=== PATIENT | female | born 1945 | race Caucasian/White ===

== ENCOUNTER 2017-04-12 03:59 | Inpatient (IN) | payer MEDICARE ==
[~2017-04-12] VITALS: Ht 157.5 cm; Wt 64.9 kg
[2017-04-12] VITALS (7 sets, daily range): BP systolic 94–135; BP diastolic 54–84
[2017-04-12] MEDS ORDERED: SPIR50TA2 PO (04:10)
[2017-04-12] MEDS ORDERED: LEVO88TA3 PO (04:10)
[2017-04-12] MEDS: MORPHINE 4 MG/ML 1ML SYRINGE IV PRN ×2 (04:45→05:54)
[2017-04-12] MEDS ORDERED: ONDANSETRON 4MG/2ML VIAL (J2405) IV ONE (04:45)
[2017-04-12] MEDS: NS 1,000 ML IV SCH ×2 (05:56→12:13)
[2017-04-12 06:43] LABS: INR 0.94
[2017-04-12 06:53] LABS: ANION GAP 9 MEQ/L (8-16); BLOOD UREA NITROGEN 9 MG/DL (7-18); CALCIUM LEVEL 9.5 MG/DL (8.8-10.2); CARBON DIOXIDE LEVEL 26 MEQ/L (21-32); CHLORIDE LEVEL 104 MEQ/L (98-107); CREATININE FOR GFR 0.71 MG/DL (0.55-1.02); GLOMERULAR FILTRATION RATE > 60.0 (>39); GLUCOSE, FASTING 83 MG/DL (83-110); POTASSIUM SERUM 3.9 MEQ/L (3.5-5.1); SODIUM LEVEL 139 MEQ/L (136-145)
[2017-04-12 06:56] LABS: BASO % 0.4 % (0.0-1.0); EOS # 0.2 K/mm3 (0.0-0.50); EOS % 1.5 % (0.0-3.0); LARGE UNSTAINED CELL # 0.1 K/mm3 (0.0-0.4); LARGE UNSTAINED CELL % 0.9 % (0.0-4.0); LYMPH # 1.2 K/mm3 (1.5-4.5); LYMPH % 9.8 % (24.0-44.0); MEAN CORPUSCULAR HEMOGLOBIN 31.6 pg (27.0-33.0); MEAN CORPUSCULAR VOLUME 95.8 fl (80.0-96.0); MONO # 0.7 K/mm3 (0.0-0.8); NEUTROPHILS # 9.4 K/mm3 (1.8-7.7); NEUTROPHILS % 81.4 % (36.0-66.0); PLATELET COUNT, AUTOMATED 320 k/mm3 (150-450); RED CELL DISTRIBUTION WIDTH 13.7 % (11.5-14.5); WHITE BLOOD COUNT 11.5 K/mm3 (4.0-10.0)
[2017-04-12] MEDS ORDERED: PERCOCET 5MG/325MG TAB PO PRN ×3 (07:45→18:45)
[2017-04-12] MEDS ORDERED: ACETAMINOPHEN TAB 650MG DOSE (2X325MG) PO PRN (07:45)
[2017-04-12 07:55] LABS: T UPTAKE 36 % (30-39); THYROXINE (T4) 8.7 UG/DL (4.5-12.0)
[2017-04-12] MEDS ORDERED: MORPHINE 4 MG/ML 1ML SYRINGE As Ordered ONE (08:08)
--- NOTE | 2017-04-12 08:26 | ECGEPIP ---
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
--- NOTE | 2017-04-12 08:28 | HPE ---
DATE OF ADMISSION: 04/12/2017 PRIMARY CARE PROVIDER: Dr. Monaco in [place], primary residency in [place], [place]. HISTORY OF PRESENT ILLNESS: The patient is a 72-year-old female with past medical history significant for hypothyroidism presented to [facility] on 04/12/2017 for significant left ankle pain. Yesterday when patient tried to step down the stair case while she was carrying her belongings, she tripped and lost her balance and result in left ankle twisting. She denies any loss of consciousness. Patient did not hit the back, the head, the neck, the shoulder or elbow. After the event, patient could not get up from the floor. She sat down on the sofa for several hours. The pain did not go away. Therefore patient called 911 and brought to [facility] emergency room. Patient was found to have a left ankle fracture. Throughout the whole event, patient denies any neurological changes. Denies any chest pain or shortness of breath. Denies any history of heart disease or lung disease. ALLERGIES: No known drug allergies. PAST MEDICAL HISTORY: Hypothyroidism. History of spine fracture treated with conservative medical management. PAST SURGICAL HISTORY: None. HOME MEDICATIONS: - Synthroid 88 mcg by mouth daily - spironolactone 15 mg by mouth daily SOCIAL HISTORY: Patient used to smoke three packs per week. She quit approximately 20 years ago, however since then, patient used to smoke intermittently during social events. Patient drinks one wine a few times a week. Denies any recreational drug use. Patient is a FULL CODE. REVIEW OF SYSTEMS: General: No fever, no chills. HEENT: Denies any vision changes or auditory hallucinations. Cardiovascular: Denied any chest pain. Denied any history of cardiovascular disease. Respiratory: No shortness of breath. No cough. No sputum production. Denies any lung disease or lung condition. GI: No nausea, no vomiting, no abdominal pain, no diarrhea. Musculoskeletal: Patient had left ankle pain, found to have a left ankle fracture. Denies any other muscle pain or joint pain. Denies any trauma to the hip, lower back, bilateral shoulders, elbows, neck or the head. Neurological: Denies any numbness or tingling. PHYSICAL EXAMINATION: Vital signs: Temperature 98.3, pulse is 75, respirations 18, blood pressure is 158/72, pulse ox 100% on room air. General: No sign of acute distress. Alert and oriented times three. HEENT: Normocephalic, atraumatic. Extraocular motor grossly intact. Cardiovascular: Positive S1, S2. Regular rate. Lungs: Clear to auscultation bilaterally. Abdomen: Soft, nontender, nondistended. Bowel sounds present. No rebound. No guarding. Musculoskeletal: There are some bruises left medial ankle. No lower extremity edema. No cyanosis. Neurological: Sensation to light touch grossly intact. Muscle strength 5/5 throughout except I could not assess the left lower extremity due to significant pain. LABORATORY DATA: WBC 11.5, hemoglobin 13.9, hematocrit 42.1, platelet count 320. Sodium 139, potassium 3.9, chloride 104, carbon dioxide 26, BUN 9, creatinine 0.71, glomerular filtration rate greater than 60, fasting glucose 83, calcium 9.5. PT 12.7, INR 0.94. IMAGING STUDY: Official report pending. I look at the ankle x-ray and showed there is tibial fractures of the left lower extremity. EKG shows sinus rhythm. ASSESSMENT AND PLAN: 1. Left ankle fracture. Patient was admitted to medical/surgical floor under inpatient status. Orthopedic team is consulted, is planning to have surgery today. Patient will be placed n.p.o. Patient is placed on IV fluid. Will give patient oral pain medication for now. Patient does not have any cardiovascular disease or pulmonary disease in the past and at baseline, patient has met greater than 4. Patient never had surgery in the past. Patient is a low risk patient. The surgery is low risk. The benefit outweigh the risk for the patient and patient is currently optimized for the procedure. 2. Hypothyroidism. Patient is on Synthroid supplement. Follow with thyroid profile. 3. Use of spironolactone. Patient denies any history of hypertension. Patient was told she was given spironolactone for her hair loss. 4. Deep venous thrombosis (DVT) prophylaxis. Patient will be on thromboembolic deterrent stockings (TEDS) and sequential compression device.
[2017-04-12] MEDS ORDERED: MORPHINE 4 MG/ML 1ML SYRINGE IV STA (08:29)
--- NOTE | 2017-04-12 08:39 | REP ---
Chest one-view HISTORY: Preop Comparison: None The lungs are clear. The heart is normal in size. The pulmonary vasculature is normal in appearance. Impression: No acute disease. Signed by Alexx Herrera MD 04/12/2017 08:30 A
--- NOTE | 2017-04-12 08:42 | REP ---
Left foot series: Two views. History: Trauma. Findings: AP and lateral views of the left foot demonstrate post-traumatic deformity of the distal fibula and medial malleolus consistent with ankle fracture. 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 Mild diffuse osteopenia. There is Achilles calcaneal spurring. No acute foot fracture seen. Signed by Clay Licea MD 04/12/2017 10:18 A
--- NOTE | 2017-04-12 08:43 | REP ---
Left TIB-fib series: Five views. History: Trauma. Findings: Five views of the left tibia and fibula demonstrate a obliquely oriented fracture of the distal fibula displaced laterally. There is a transverse fracture of the medial malleolus and there is lateral subluxation of the ankle. A posterior tibial fracture is seen at the ankle as well. There is associated soft-tissue swelling. No proximal tibial or fibular fracture is seen. Impression: Displaced trimalleolar fracture subluxation at the ankle. No proximal fracture seen. Signed by Clay Licea MD 04/12/2017 10:18 A
--- NOTE | 2017-04-12 08:44 | REP ---
LEFT ANKLE, FOUR VIEWS: HISTORY: Fracture. There are fractures of the medial and lateral malleoli. There is a possible fracture of the posterior malleolus. There is widening of the ankle joint space. There is no dislocation. Soft tissue swelling is present. IMPRESSION: Fractures of the medial and lateral malleoli. Signed by Alexx Herrera MD 04/12/2017 08:50 A
[2017-04-12] MEDS ORDERED: ceFAZolin 1GM INJ (J0690) As Ordered ONE ×2 (13:12→15:23)
[2017-04-12] MEDS ORDERED: BUPIVACAINE/EPIN 0.25% 30 ML VIAL As Ordered ONE (13:12)
[2017-04-12] MEDS ORDERED: ceFAZolin 2 GM/D5W 50 ML IV BAG (J0690) As Ordered ONE (15:18)
[2017-04-12] MEDS ORDERED: PERCOCET 5MG/325MG TAB As Ordered ONE (15:57)
[2017-04-12] MEDS ORDERED: PREGABALIN 50 MG CAP (LYRICA) PO ONE (16:15)
[2017-04-12] MEDS ORDERED: PERCOCET 5MG/325MG TAB PO ONE (16:15)
[2017-04-12] MEDS ORDERED: MIDAZOLAM INJ 2 MG/2 ML VIAL (J2250) As Ordered ONE (16:34)
[2017-04-12] MEDS ORDERED: fentaNYL 100 MCG/2 ML INJECTION (J3010) As Ordered ONE (16:34)
[2017-04-12] MEDS ORDERED: PROPOFOL 500 MG/50 ML VIAL As Ordered ONE (16:34)
[2017-04-12] MEDS ORDERED: ONDANSETRON 4MG/2ML VIAL (J2405) As Ordered ONE (16:35)
[2017-04-12] MEDS ORDERED: dexameTHASONE 4 MG/ML 1ML VIAL (J1100) As Ordered ONE (16:35)
[2017-04-12] MEDS ORDERED: LIDOCAINE 2% INJ 100 MG/5 ML SDV (FOR ANES.) As Ordered ONE (16:36)
--- NOTE | 2017-04-12 16:43 | CR ---
DATE OF CONSULTATION: 04/12/2017 CHIEF COMPLAINT: Left ankle pain and deformity. 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 She ended up crawling to the bathroom, struggling to get onto the commode, and rested for a bit, and she realized eventually that she needs to call EMS because there was a problem with the ankle. She was brought to [facility] for further evaluation, where imaging studies reflect a bimalleolar fracture dislocation, with subtle involvement of the posterior malleolus, technically a trimalleolar fracture. Orthopedics was consulted. The patient's pain control with morphine in the emergency room. ALLERGIES: No known allergies. SMOKING HISTORY: Does not smoke. MEDICAL HISTORY: Includes hypothyroidism. MEDICATIONS AT HOME: Include Synthroid and spironolactone. SOCIAL HISTORY She used to smoke, but does not smoke. Occasionally drinks but not excessively. She is single. REVIEW OF SYSTEMS: General: Not complaining of fever or chills, not complaining of headache, not complaining of chest pain, not complaining of shortness of breath, not complaining of stomach problems. Complains of her left ankle pain, swelling and deformity. She does not complain of numbness or tingling either. Not complaining of endocrine trouble. IMAGING STUDIES: Show the fracture as mentioned above. CLINICAL EXAMINATION: Alert for and cooperative. Mood and affect are appropriate. The patient is pleasant. She has healthy skin in face, upper and lower extremities. There is no effusion or tenderness about the knee, and there is no pain with hip rotation. The foot is warm and well perfused with a palpable dorsalis pedis pulse. The foot is mildly edematous at this stage, but there are no open wounds on the left. Uninvolved on the right. LABORATORY FINDINGS Include a hemoglobin of 14, potassium 3.9. Creatinine 0.71. IMPRESSION: Left ankle fracture dislocation technically a trimalleolar type. RECOMMENDATIONS: Medical optimization via hospitalist service. Splinting in the emergency room by Mr. Goins, our physician insurance legal assistant. We talked to the patient about nonoperative intervention and reviewed a consent document with the patient, which involved a mehrdad discussion of the pathology involved, procedure proposed, alternatives including doing nothing and risks including but not limited to pain, failure, infection, bleeding blood loss, incomplete relief of symptoms, need for more surgery or other problems. The patient agreed to proceed.
[2017-04-12] MEDS ORDERED: PHENYLephrine HCL 500 MCG/5 ML (100MCG/ML) SYRINGE (J2370) As Ordered ONE ×2 (16:57→16:58)
[2017-04-12] MEDS ORDERED: ePHEDrine SULFATE 25 MG/5 ML(5MG/ML) SYRINGE As Ordered ONE ×2 (16:57→16:58)
[2017-04-12] MEDS ORDERED: D5W/LR 1,000 ML IV SCH (18:30)
[2017-04-12] MEDS ORDERED: fentaNYL 100 MCG/2 ML INJECTION (J3010) IV PRN (18:45)
[2017-04-12] MEDS ORDERED: MEPERIDINE INJ 25 MG/ML VIAL (J2175) IV PRN (18:45)
[2017-04-12] MEDS ORDERED: METOCLOPRAMIDE INJ 10MG/2ML VIAL (J2765) IV PRN (18:45)
[2017-04-12] MEDS ORDERED: LR 1,000 ML IV SCH (18:45)
[2017-04-12] MEDS ORDERED: ONDANSETRON 4MG/2ML VIAL (J2405) IV PRN ×2 (18:45)
[2017-04-12] MEDS ORDERED: MORPHINE 4 MG/ML 1ML SYRINGE IV PRN (18:45)
--- NOTE | 2017-04-12 19:34 | REP ---
C-ARM VIEWS LEFT ANKLE: Three C-Arm views of the left ankle performed. Metallic plate and multiple metallic screws are seen in the distal fibula. There are two metallic screws in the medial malleolus. Structures appear well aligned. The ankle mortise is anatomic. 25 seconds of fluoroscopy time was utilized. Signed by Enzo Middleton MD 04/12/2017 08:07 P
[2017-04-13 02:00] VITALS: BP 95/50
[2017-04-13] MEDS: PERCOCET 5MG/325MG TAB PO PRN ×3 (04:26→22:46)
[2017-04-13 06:00] VITALS: BP 105/59
[2017-04-13 07:07] LABS: MEAN CORPUSCULAR HEMOGLOBIN 32.4 pg (27.0-33.0); MEAN CORPUSCULAR HGB CONC 33.6 g/dl (32.0-36.5); MEAN CORPUSCULAR VOLUME 96.5 fl (80.0-96.0); RED CELL DISTRIBUTION WIDTH 13.6 % (11.5-14.5); WHITE BLOOD COUNT 12.2 K/mm3 (4.0-10.0)
[2017-04-13 07:18] LABS: ANION GAP 7 MEQ/L (8-16); BLOOD UREA NITROGEN 9 MG/DL (7-18); CARBON DIOXIDE LEVEL 26 MEQ/L (21-32); CHLORIDE LEVEL 105 MEQ/L (98-107); CREATININE FOR GFR 0.59 MG/DL (0.55-1.02); GLOMERULAR FILTRATION RATE > 60.0 (>39); GLUCOSE, FASTING 129 MG/DL (83-110); SODIUM LEVEL 138 MEQ/L (136-145)
[2017-04-13 07:37] LABS: CALCIUM LEVEL 8.3 MG/DL (8.8-10.2)
[2017-04-13] MEDS: ASPIRIN ENTERIC 325 MG TAB PO SCH (09:04)
[2017-04-13 10:00] VITALS: BP 106/57
[2017-04-13 14:00] VITALS: BP 98/53
--- NOTE | 2017-04-13 17:06 | IPN ---
DATE: 04/13/2017 SUBJECTIVE: The patient is seen and examined in the room today. The patient stated her pain shows significant improvement with the pain medications. She has a cast on her left distal lower extremity. The patient is trying walking with physical therapy; however, the patient is complaining about the cast too heavy causing some difficulties. Otherwise no acute events reported. The patient is tolerating oral diet well. OBJECTIVE: VITAL SIGNS: Temperature is 98.1, pulse 69, respirations 11, blood pressure 105/59, pulse oximetry 96% on room air. GENERAL: No sign of acute distress. Alert and oriented times three. HEENT: Normocephalic, atraumatic. Extraocular motor grossly intact. CARDIOVASCULAR: Positive S1, S2. Regular rate. LUNGS: Clear to auscultation bilaterally. ABDOMEN: Soft, nontender, nondistended. Bowel sounds present. No rebound, no guarding. EXTREMITIES: Left distal lower extremity is wrapped with a cast. No sign of cyanosis. LABORATORY DATA: WBC 12.2, hemoglobin 11, hematocrit 32.6, platelet count 225. Sodium is 138, potassium 4, chloride 105, carbon dioxide 26, BUN 9, creatinine 0.59, GFR greater than 60, fasting glucose 129, calcium 8.3. ASSESSMENT AND PLAN: 1. Left ankle fracture. The patient had a surgical intervention by the orthopedic surgeon, Dr. Garcia on 04/12/2017. Today is postoperative day one. The patient will continue to follow with physical therapy. The patient may be a candidate for rehabilitation. 2. Hypothyroidism. On Synthroid. 3. Deep venous thrombosis (DVT) prophylaxis per orthopedic team. The patient has thromboembolism deterrent stockings (TEDs) and sequential compression device.
[2017-04-13 22:00] VITALS: BP 110/54
[2017-04-14 06:00] VITALS: BP 108/54
[2017-04-14] MEDS: LEVOTHYROXINE 88MCG TABLET (0.088 MG) PO SCH (06:00)
[2017-04-14] MEDS: PERCOCET 5MG/325MG TAB PO PRN ×4 (06:00→23:33)
[2017-04-14 07:01] LABS: MEAN CORPUSCULAR HEMOGLOBIN 31.8 pg (27.0-33.0); MEAN CORPUSCULAR HGB CONC 32.5 g/dl (32.0-36.5); MEAN CORPUSCULAR VOLUME 97.9 fl (80.0-96.0); RED CELL DISTRIBUTION WIDTH 13.7 % (11.5-14.5); WHITE BLOOD COUNT 8.5 K/mm3 (4.0-10.0)
[2017-04-14 07:22] LABS: ANION GAP 7 MEQ/L (8-16); BLOOD UREA NITROGEN 11 MG/DL (7-18); CARBON DIOXIDE LEVEL 26 MEQ/L (21-32); CHLORIDE LEVEL 106 MEQ/L (98-107); CREATININE FOR GFR 0.61 MG/DL (0.55-1.02); GLOMERULAR FILTRATION RATE > 60.0 (>39); GLUCOSE, FASTING 87 MG/DL (83-110); POTASSIUM SERUM 3.7 MEQ/L (3.5-5.1); SODIUM LEVEL 139 MEQ/L (136-145)
--- NOTE | 2017-04-14 08:30 | RO ---
DATE OF PROCEDURE: 04/13/2017 PREOPERATIVE DIAGNOSIS: Left ankle trimalleolar fracture-dislocation. POSTOPERATIVE DIAGNOSIS: Left ankle trimalleolar fracture-dislocation. OPERATIVE PROCEDURE: ORIF of left ankle. SURGEON: Jorge Luis Garcia MD PROJECT MANAGEMENT SPECIALIST: ANESTHESIA: Given by Dr. Parks. Please refer to his anesthesia notes. ESTIMATED BLOOD LOSS: Less than 40 ml. REPLACED: With crystalloid. COMPLICATIONS: None. COMPONENTS USED: Synthes one-third tubular eight hole plate, the appropriate cortical and cancellus screws at the medial malleolus. We used a pair of 4.0 cannulated screws. INDICATIONS: Ms. Barillas is a 72-year-old female with a trimalleolar fracture-dislocation. CONSENT: Reviewed in detail with the patient including mehrdad discussion of pathology involved, procedure proposed, alternatives including doing nothing and risks including but not limited to pain, failure, infection, bleeding, blood loss, incomplete relief of symptoms, blood clots, limp and other problems. The patient agrees to proceed with operative course. DESCRIPTION OF PROCEDURE: Identified in holding area, site, side verified, brought to the operating room. Once anesthesia was administered, she was positioned for exposure of the left ankle. I did not inflate a tourniquet. Next, the time-out was accomplished. Incision was outlined with a marking pen, infiltrated with 0.25% Marcaine with epinephrine. We began the procedure at the lateral side and made the incision over the fibula, developed down through skin and subcuticular tissues. Cutaneous nerve identified. It was held anterior. Fibula was exposed. Comminuted fracture appreciated. I placed an AP lag screw that did secure the fracture after I reduced the fracture with the fracture reduction forceps. Next, I selected the eight hole plate, it was contoured and placed to the fibula. I secured the plate using the appropriate cortical and cancellus screws. Post reduction x-rays at this point revealed what appeared to be an anatomic reduction on the AP and the mortise especially the fibula seemed to be out to length. Next, attention turned to the medial malleolus. The incision was made over the medial malleolus. The saphenous vein was identified and protected. Bipolar cautery was utilized to coagulate small branches of the saphenous vein. The fracture was exposed and medial malleolus. I percutaneously placed a pair of guidewires after reducing the medial malleolus and visualizing its lateral corner. The guidewire secured the medial malleolus. I then overdrilled the guidewires using oscillate function and then I placed a pair of cannulated 4-0 screws, 36 and 38 mm long securing the medial malleolus. Next, irrigation was accomplished for final fluoroscopic images and AP, lateral and mortise were obtained. The lateral, we did visualize better the posterior malleolar fragment, which seems to be reasonably aligned without surgical intervention comprising less than 15%. Next, the wounds were closed with interrupted stitch, followed by brody. Sterile dressing followed by short-leg cast applied. The patient moved to recovery in good condition. For further details, please refer to the medical record.
[2017-04-14] MEDS: ASPIRIN ENTERIC 325 MG TAB PO SCH (09:41)
[2017-04-14] MEDS: SPIRONOLACTONE 50 MG TAB PO SCH (09:41)
[2017-04-14 14:00] VITALS: BP 104/61
--- NOTE | 2017-04-14 14:00 | IPN ---
DATE: 04/14/2017 SUBJECTIVE: Patient is seen and examined in the room after her physical therapy session. Patient does not have any acute complaints or acute changes. Patient has good oral intake. OBJECTIVE: VITAL SIGNS: Temperature is 98.9, pulse 69, respiratory rate is 15, blood pressure 108/54, pulse oximetry 98% in room air. GENERAL: No sign of acute distress. Alert and oriented times three. HEENT: Normocephalic, atraumatic. Extraocular motor grossly intact. CARDIOVASCULAR: Positive S1, S2. Regular rate. LUNGS: Clear to auscultation bilaterally. ABDOMEN: Soft, nontender, nondistended. Bowel sounds present. No rebound, no guarding. EXTREMITIES: Left distal lower extremity is wrapped with a cast. No sign of cyanosis. LABORATORY DATA: WBC 8.5, hemoglobin 10.8, hematocrit 33.2, platelet count 225. Sodium is 139, potassium 3.7, chloride 106, carbon dioxide 26, BUN 11, creatinine 0.61, GFR greater than 60, fasting glucose 87, calcium is 8. ASSESSMENT AND PLAN: 1. Left ankle fracture. Patient had orthopedic surgical intervention by Dr. Garcia on 04/12/2017. Today is postoperative day 2. Patient will continue to work with physical therapy. Pain is manageable with current pain medications. 2. Hypothyroidism. On Synthroid. 3. Deep venous thrombosis (DVT) prophylaxis. Patient has thromboembolism deterrent stockings (TEDS) and sequential compression devices (SCD).
[2017-04-14 22:00] VITALS: BP 116/59
[2017-04-15 06:00] VITALS: BP 112/62
[2017-04-15] MEDS: LEVOTHYROXINE 88MCG TABLET (0.088 MG) PO SCH (06:22)
[2017-04-15 06:49] LABS: MEAN CORPUSCULAR HEMOGLOBIN 32.7 pg (27.0-33.0); MEAN CORPUSCULAR HGB CONC 33.6 g/dl (32.0-36.5); MEAN CORPUSCULAR VOLUME 97.4 fl (80.0-96.0); RED CELL DISTRIBUTION WIDTH 13.8 % (11.5-14.5); WHITE BLOOD COUNT 6.1 K/mm3 (4.0-10.0)
[2017-04-15 06:54] LABS: ANION GAP 5 MEQ/L (8-16); BLOOD UREA NITROGEN 10 MG/DL (7-18); CALCIUM LEVEL 8.4 MG/DL (8.8-10.2); CARBON DIOXIDE LEVEL 31 MEQ/L (21-32); CHLORIDE LEVEL 105 MEQ/L (98-107); CREATININE FOR GFR 0.59 MG/DL (0.55-1.02); GLOMERULAR FILTRATION RATE > 60.0 (>39); GLUCOSE, FASTING 92 MG/DL (83-110); SODIUM LEVEL 141 MEQ/L (136-145)
[2017-04-15] MEDS: PERCOCET 5MG/325MG TAB PO PRN (07:00)
[2017-04-15] MEDS ORDERED: ASPI32ECTA PO (07:26)
[2017-04-15] MEDS ORDERED: PERCOCET PO (07:26)
[2017-04-15] MEDS: ASPIRIN ENTERIC 325 MG TAB PO SCH (09:17)
[2017-04-15] MEDS: SPIRONOLACTONE 50 MG TAB PO SCH (09:17)
--- NOTE | 2017-04-15 18:00 | DSES ---
DATE OF ADMISSION: 04/12/2016 DATE OF DISCHARGE: 04/15/2017 PRIMARY CARE PROVIDER: Dr. Monaco, in [place]. PRIMARY RESIDENCE: [place], [place]. CONSULTANTS: Orthopedic surgery. PROCEDURES: Open reduction internal fixation (ORIF) of the left ankle. COMPLICATIONS: None. ADMISSION/DISCHARGE DIAGNOSES: 1. Left ankle fracture status post surgical repair. 2. Hypothyroidism. HOSPITALIZATION COURSE: Patient is a 72-year-old female who presented to [facility] on 04/12/2017 with persistent left ankle pain after a mechanical trauma. In the emergency room, patient was found to have a left ankle fracture. Orthopedic team was called and patient was admitted to the medical/surgical floor. Patient had an open reduction internal fixation (ORIF) of the left ankle 04/13/2017. Patient recovered well. After the procedure, patient started on control and physical therapy and on 04/15/2017, patient was cleared by physical therapy with discharge, with the recommendation to follow with orthopedic surgery in two weeks. OBJECTIVE: VITAL SIGNS: Temperature 97.4, pulse 61, respirations 16, blood pressure 112/62, pulse oximetry 98% on room air. LABORATORY DATA: WBC 6.1, hemoglobin 10.3, hematocrit 30.7, platelet count 228. Sodium 141, potassium 4, chloride 105, carbon dioxide 31, BUN 10, creatinine 0.59, GFR greater than 60, fasting glucose 92, calcium 8.4. IMAGING STUDY: Left lower extremity x-ray shows displaced trimalleolar fracture subluxation at the ankle. DISCHARGE MEDICATIONS: - aspirin 325 mg by mouth daily - Percocet 5/325 two tables by mouth every 4 hours as needed, a six day supply - Synthroid 88 mcg by mouth daily - spironolactone 550 mg by mouth daily (patient was taking at home for her loss issue, given by the primary care provider) DISCHARGE INSTRUCTIONS: Discharge line. Discharge to home. Activity as tolerated. Diet as tolerated. Initial followup with primary care provider in 1-2 weeks. Patient should also follow with orthopedic surgery team in two weeks. DISCHARGE CONDITION: Stable. DISCHARGE PLANNING: Less than 30 minutes.
== END 2017-04-15 11:10 | disposition home or self-care (01) | DRG 494 ==
LOC: EDBD 03:59 → M ED 06:04 → M MS5PR 07:44 → M PT 09:44 → M SDC 09:44 → M MS5PR 11:30 → M SDC 04-14 07:00 → M MS5PR 04-14 07:59 → M SDC 04-15 11:10
PROVIDERS: ADMIT Internal Medicine; ATTEND Internal Medicine
PROC: 0QSK04Z Reposition Left Fibula with Internal Fixation Device, Open Approach (ICD-10-PCS; principal; 2017-04-13)
PROC: 0QSH04Z Reposition Left Tibia with Internal Fixation Device, Open Approach (ICD-10-PCS; 2017-04-13)
DX: S82.852A Displaced trimalleolar fracture of left lower leg, initial encounter for closed fracture (principal); W10.8XXA Fall (on) (from) other stairs and steps, initial encounter; E03.9 Hypothyroidism, unspecified; Y92.008 Other place in unspecified non-institutional (private) residence as the place of occurrence of the external cause; Y93.01 Activity, walking, marching and hiking; Y99.9 Unspecified external cause status; Z79.899 Other long term (current) drug therapy; Z87.891 Personal history of nicotine dependence